=== PATIENT | male | born 1945 | race Caucasian/White ===

== ENCOUNTER 2020-05-19 12:30 | Outpatient (CLI) | payer MEDICARE, SELFPAY ==
--- NOTE | 2020-05-19 13:15 | ECHO_ITS ---
Patient Info Name: Mc Steel Age: 74 years : 1945 Gender: Male Ht: 68 in Wt: 295 lbs BSA: 2.60 m2 HR: 63 bpm BP: 164 / 93 mmHg Technical Quality: Poor Exam Date: 05/19/2020 1:31 PM Exam Location: [facility] Patient Status: Outpatient Admit Date: 05/19/2020 Staff Ordering Physician: Paulino Montano DO Mobile Service Rv Technician: Cara Berman RDCS Attending Provider: Paulino Montano DO Referring Physician: Dusty HERNANDEZ; Exam Type: CA echo dop color flow w con Study Info Indications - BLAKE Complete two-dimensional, color flow and Doppler transthoracic echocardiogram is performed with contrast to opacify the left ventricle and to improve the deliniation of the left ventricle endocardial borders. Contrast/Agitated Saline Contrast/Ag. Saline: Definity Amount: 2.00 ml Administered By: Concepcion Lu RN New IV Access: Right Site Condition: IV removed Reason for Poor Study: patient body habitus Summary 1. Left ventricular chamber dimension is normal. 2. Definity contrast administered improved wall motion interpretation. 3. Left ventricular systolic function is normal, estimated at 60-65%. 4. The left ventricular diastolic function is grade I diastolic dysfunction. 5. E/e' 12 is mildly elevated. 6. No pulmonary hypertension, estimated pulmonary arterial systolic pressure is 21 mmHg. Left Ventricle E/e' 12 is mildly elevated. Definity contrast administered improved wall motion interpretation. Left ventricular chamber dimension is normal. Left ventricular systolic function is normal, estimated at 60-65%. The left ventricular diastolic function is grade I diastolic dysfunction. Right Ventricle Right ventricular chamber dimension is normal. Right ventricular systolic function is normal. Left Atria Left atrial chamber dimension is normal. Right Atria Right atrial chamber dimension is normal. Aortic Valve The aortic valve is not well visualized. Cannot determine number of aortic valve leaflets. There is no aortic valve stenosis. There is no aortic valve regurgitation. Pulmonic Valve There is no pulmonic regurgitation. Mitral Valve There is no mitral valve stenosis. There is no mitral valve regurgitation. Tricuspid Valve There is no tricuspid valve regurgitation. No pulmonary hypertension, estimated pulmonary arterial systolic pressure is 21 mmHg. Pericardium/Pleural There is no pericardial effusion. Inferior Vena Cava Normal inferior vena cava with >50% collapse upon inspiration consistent with normal right atrial pressure, 5 mmHg. Aorta The aortic root size at the sinus of Valsalva is not well visualized. Left Ventricular Outflow Tract Name Value Normal LVOT 2D LVOT Diameter 2.08 cm LVOT Doppler LVOT Peak Gradient 4 mmHg LVOT Mean Gradient 2 mmHg LVOT VTI 19.71 cm LVOT VTI/AV VTI Ratio 0.82 LVOT Stroke Volume 66.85 ml LVOT CO 12.77 l/
== END 2020-05-19 12:31 | disposition home or self-care (01) ==
PROVIDERS: PCP Family Medicine; Visit Provider Internal Medicine Cardiovascular Disease
DX: R06.00 Dyspnea, unspecified (principal); I51.89 Other ill-defined heart diseases
CPT/HCPCS: C8929

== ENCOUNTER 2020-06-22 11:40 | Emergency (ER) | payer MEDICARE, SELFPAY ==
--- NOTE | ~2020-06-22 | XR_ITS ---
EXAMINATION: XR chest 2V EXAM DATE: 06/22/2020 13:15 INDICATION: weakness, h/o lung mets. TECHNIQUE: Frontal and lateral projections of the chest obtained and reviewed. Comparison is made to prior examination from 07/14/15. FINDINGS: Right-sided CT portacatheter. Tip projects over cavoatrial junction. The lungs are clear. There are no pleural effusions. Cardiac silhouette is prominent but magnified on this AP technique. There is no pneumothorax suspected. The bones and soft tissues are unremarkable. IMPRESSION: No acute cardiopulmonary findings. Reviewed, dictated and finalized at location A.
[2020-06-22 11:44] VITALS: BP 162/72; PULSE 59; RESP 18; TEMP 36.4; O2SAT 99
--- NOTE | 2020-06-22 11:56 | ECG_ITS ---
Measurements Intervals [place] Rate: 56 P: [place]: 0 QRS: 69 QRSD: 85 T: 41 QT: 428 QTc: 415 Interpretive Statements SINUS BRADYCARDIA WITH FIRST DEGREE AV BLOCK LOW QRS VOLTAGE IN PRECORDIAL LEADS BORDERLINE R WAVE PROGRESSION, ANTERIOR LEADS BASELINE WANDER- I, II, AVR, AVL, AVF, V3-V6 ABNORMAL ECG Electronically Signed On 06-22-2020 12:11:10 CDT by Paulino Montano D.O.
[2020-06-22 12:25] VITALS: BP 160/71; PULSE 72; RESP 99; O2SAT 18
[2020-06-22 12:26] VITALS: PULSE 67
[2020-06-22 13:06] LABS: Basophils Percent Auto 0.5 % (0.2-1.2); Eosinophils Percent Auto 0.7 % (0-4.4); Hematocrit 46.5 % (42.0-52.0); Hemoglobin 15.3 g/dL (14.0-18.0); Immature Granulocyte Absolute 0.02 K/mm3 (0.00-0.031); Immature Granulocyte Percent A 0.3 % (0-0.5); Immature Platelet Fraction Pct 5.9 % (0.9-11.2); Lymphocytes Absolute Auto 1.61 K/mm3 (0.9-3.2); Lymphocytes Percent Auto 26.8 % (18.3-44.2); Mean Corpuscular HGB Conc 32.9 g/dl (32-36); Mean Corpuscular Hemoglobin 30.5 pg (26-34); Mean Corpuscular Volume 92.8 fl (80-100); Mean Platelet Volume 10.8 fl (7.4-10.4); Monocytes Absolute Auto 0.5 K/mm3 (0.1-0.6); Monocytes Percent Auto 8.8 % (2.6-8.5); Neutrophils Absolute Auto 3.8 K/mm3 (1.3-6.7); Neutrophils Percent Auto 62.9 % (45.5-73.1); Platelet Count Result 129 k/mm3 (150-375); Red Blood Count 5.01 M/mm3 (4.6-6.20); Red Cell Distribution Width 14.6 % (11.5-14.5)
[2020-06-22 13:09] LABS: Add Urine Microscopic? YES; Appearance Urine Cloudy (Clear); Bacteria Urine Trace /hpf; Bilirubin Urine Negative (Negative); Blood Urine Negative (Negative); Color Urine Yellow (Yellow); Glucose Urine UA Negative (Negative); Ketones Urine Negative (Negative); Leukocyte Esterase Ur Negative LEU/UL (Negative); Mucus Urine Rare /lpf; Nitrate Urine Negative (Negative); Protein Urine 3+ mg/dL (Negative); RBC Urine 0-2 /hpf (0-2); Specific Grav Ur 1.018 (1.001-1.035); Squamous Epithelial Cell Urine Many /hpf (Few); Urobilinogen Urine Negative mg/dL (<2.0)
[2020-06-22 13:26] LABS: Alanine Aminotransferase 21 U/L (4-50); Albumin Level 3.7 g/dL (3.5-5.1); Alkaline Phosphatase 68 U/L (38-126); Anion Gap 5 mmol/L (8-16); Aspartate Amino Transferase 24 U/L (17-59); Bilirubin,Total 1.3 mg/dL (0.2-1.3); Blood Urea Nitrogen 16 mg/dL (9-20); Calcium 8.8 mg/dL (8.4-10.2); Carbon Dioxide 29 mmol/L (22-30); Chloride 105 mmol/L (98-107); Estimated CRCL calculation 47 ml/min; Estimated Glomerular Filt Rate 42; Glucose 136 mg/dL (75-110); Potassium 3.7 mmol/L (3.4-5.0); Sodium 139 mmol/L (137-145)
--- NOTE | 2020-06-22 13:39 | ED.WEAKNESS ---
HPI - Weakness General Chief complaint: Weakness Stated complaint: Trouble standing and walking Time Seen by Provider: 06/22/20 12:26 Source: patient Limitations: no limitations History of Present Illness HPI Narrative: 74-year-old male History of diabetes, hypertension He is being treated excitement for renal cell cancer with [place] and as far as he knows is responding to treatment Presents today for evaluation of somewhat vague general weakness and feeling like his legs will not hold him up over the last few days He does not have any focal neurologic symptoms and does not have near syncope or vertigo or dizziness Similarly denies a cough shortness of breath chest pain He had diarrhea couple days ago MD Complaint: generalized weakness and difficulty walking Related Data Home Medications Medication Instructions Recorded Confirmed axitinib 5 mg tablet 3 mg PO BID 03/16/20 04/19/20 levothyroxine 88 mcg capsule 88 mcg PO DAILY 03/16/20 04/19/20 alprazolam 0.25 mg disintegrating 0.25 mg PO DAILY 04/19/20 04/19/20 tablet amlodipine 5 mg tablet 5 mg PO DAILY 04/19/20 04/19/20 atorvastatin 40 mg tablet 40 mg PO DAILY 04/19/20 04/19/20 carvedilol 12.5 mg tablet 12.5 mg PO Q12H 04/19/20 04/19/20 diazepam 5 mg tablet 5 mg PO DAILY PRN tablet 04/19/20 04/19/20 fluticasone furoate 100 1 inh INHALATION DAILY 04/19/20 04/19/20 mcg-vilanterol 25 mcg/dose inhalation powder furosemide 40 mg tablet 40 mg PO QAM 04/19/20 04/19/20 hydrocodone 5 mg-acetaminophen 325 1 tablet PO Q8H PRN 04/19/20 04/19/20 mg tablet insulin glargine U-300 conc 300 30 unit SUBCUT DAILY 04/19/20 04/19/20 unit/mL (3 mL) subcutaneous pen insulin lispro protamine-lispro 1 sliding scale dose SUBCUT 04/19/20 04/19/20 100 unit/mL (50-50) subcutaneous USEASDIRECTD susp liraglutide 0.6 mg/0.1 mL (18 mg/3 0.6 mg SUBCUT DAILY 04/19/20 04/19/20 mL) subcutaneous pen injector prochlorperazine maleate 10 mg 10 mg PO Q8H PRN 04/19/20 04/19/20 tablet levothyroxine 06/22/20 Allergies Allergy/AdvReac Type Severity Reaction Status Date / Time Penicillins Allergy Intermediate Rash Verified 06/22/20 12:35 Review of Systems Review of Systems: All systems reviewed & are unremarkable except as noted in HPI and below Constitutional: Constitutional: Reports no additional constitutional complaints, Denies chills, Reports fatigue, Denies fever(s), Denies headache(s) and Reports weakness Eyes: Eyes: Reports no additional eye complaints and Denies change in vision ENT: Denies headache(s) and Denies sore throat Cardiovascular: Cardiovascular: Denies chest pain and Denies dyspnea Respiratory: Respiratory: Denies cough and Denies dyspnea Gastrointestinal: Gastrointestinal: Denies abdominal pain, Reports diarrhea, Reports nausea and Denies vomiting Genitourinary: Genitourinary: Denies dysuria and Denies urinary frequency Musculoskeletal: Musculoskeletal: Denies deformity, Denies arthralgias, Denies joint swelling and Denies numbness Integumentary/Breasts: Skin/Breast: Denies rash and Denies wounds Neurologic: Denies headache(s), Denies focal weakness, Denies numbness and Reports weakness Psychiatric: Psychiatric: Reports no additional psychiatric complaints Endocrine: Endocrine: Reports no additional endocrine complaints Hematologic/Lymphatic: Hematologic/Lymphatic: Reports no additional hematologic/lymphatic complaints Allergic/Immunologic: Allergic/Immunologic: Reports no additional allergic/immunologic complaints [facility] Past Medical History Medical History (Updated 06/22/20 @ 15:32 by Meir Walls MD) Asthma Chronic kidney disease Diabetes 1.5, managed as type 2 Generalized anxiety disorder HTN (hypertension) Hyperlipidemia Hypothyroidism Impacted cerumen Pain in right toe(s) Primary insomnia Renal carcinoma Tinea unguium Surgical History Surgical History (Updated 03/16/20 @ 11:17 by Odessa Pacheco 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
[2020-06-22 15:33] LABS: Magnesium 1.9 mg/dL (1.6-2.3)
[2020-06-22 15:51] VITALS: BP 161/73; PULSE 60; RESP 18; O2SAT 98
== END 2020-06-22 15:52 | disposition home or self-care (01) ==
PROVIDERS: General Practice; Emergency Provider Emergency Medicine; PCP Family Medicine
DX: R53.1 Weakness (principal); R26.2 Difficulty in walking, not elsewhere classified; C64.9 Malignant neoplasm of unspecified kidney, except renal pelvis; E11.22 Type 2 diabetes mellitus with diabetic chronic kidney disease; I12.9 Hypertensive chronic kidney disease with stage 1 through stage 4 chronic kidney disease, or unspecified chronic kidney disease; N18.9 Chronic kidney disease, unspecified; J45.909 Unspecified asthma, uncomplicated; E78.5 Hyperlipidemia, unspecified; E03.9 Hypothyroidism, unspecified; Z79.4 Long term (current) use of insulin; R00.1 Bradycardia, unspecified; I44.0 Atrioventricular block, first degree; R94.31 Abnormal electrocardiogram [ECG] [EKG]
CPT/HCPCS: 36415; 71046; 80053; 81001; 83735; 84443; 85025; 85055; 87086; 93005; 97161; 99283

== ENCOUNTER 2021-02-12 16:27 | Outpatient (CLI) | payer MEDICARE, SELFPAY ==
[2021-02-12 18:00] LABS: SARS-CoV-2 RNA PCR Negative (Negative)
== END 2021-02-12 16:28 | disposition home or self-care (01) ==
LOC: CHSLAB 16:29
PROVIDERS: PCP Family Medicine; Visit Provider Nurse Practitioner Family
DX: Z20.822 Contact with and (suspected) exposure to COVID-19 (principal)
CPT/HCPCS: C9803; U0003; U0005

== ENCOUNTER 2021-03-30 11:18 | Outpatient (CLI) | payer MEDICARE, SELFPAY ==
--- NOTE | ~2021-03-30 | XR_ITS ---
EXAMINATION: XR ankle LT min 3V DATE: 03/30/2021 11:50 INDICATION: Lateral left ankle pain TECHNIQUE: Anteroposterior, oblique, mortise, and lateral views of the left ankle were obtained. COMPARISON: None. FINDINGS: Alignment is normal. No fracture. Joint spaces are well maintained. No erosions. Small plantar calca deb spur and small amount of enthesopathic ossification at the distal Achilles tendon. Vascular calc ifications along the posterior tibial artery and along the arteries at the plantar aspect of the foot . No ankle joint effusion. Diffuse soft tissue tissue swelling about the ankle and visualized distal calf and proximal foot. IMPRESSION: 1. No acute osseous abnormality. Reviewed, dictated and finalized at location A. COUNCIL MEMBER
--- NOTE | ~2021-03-30 | US_ITS ---
EXAMINATION: US venous doppler [facility] DATE: 03/30/2021 14:22 INDICATION: Lower limb swelling. TECHNIQUE: Grayscale ultrasound images without and with compression and Doppler ultrasound images of the bilateral lower extremity veins were obtained. COMPARISON: None. FINDINGS: The visualized portions of right common femoral vein, profunda (deep) femoral vein, femoral vein, pop liteal vein, peroneal veins, posterior tibial veins, and greater saphenous vein outflow are patent. The visualized portions of left common femoral vein, profunda femoral vein, femoral vein, popliteal v ein, peroneal veins, posterior tibial veins, and greater saphenous vein outflow are patent. IMPRESSION: 1. No deep venous thrombosis. Reviewed, dictated and finalized at location E. ICAL EXERCISE SPECIALIST
[2021-03-30 11:40] LABS: Basophils Absolute Auto 0.02 K/mm3 (0.00-0.10); Basophils Percent Auto 0.2 % (0.0-1.0); Eosinophils Absolute Auto 0.09 K/mm3 (0.02-0.50); Hematocrit 32.6 % (37.0-46.0); Hemoglobin 10.5 g/dL (12.4-15.3); Immature Granulocyte Absolute 0.02 K/mm3 (0.00-0.00); Immature Granulocyte Percent A 0.2 % (0.0-0.0); Lymphocytes Absolute Auto 2.25 K/mm3 (1.10-4.50); Lymphocytes Percent Auto 25.5 % (18.0-42.0); Mean Corpuscular HGB Conc 32.2 g/dL (32.0-36.0); Mean Corpuscular Hemoglobin 30.7 pg (27.0-31.0); Mean Corpuscular Volume 95.3 fL (78.0-102.0); Mean Platelet Volume 10.5 fl (8.7-11.0); Monocytes Absolute Auto 0.72 K/mm3 (0.10-0.90); Monocytes Percent Auto 8.2 % (2.0-11.0); Neutrophils Absolute Auto 5.7 K/mm3 (1.7-7.2); Neutrophils Percent Auto 64.9 % (50.0-70.0); Platelet Count Result 114 K/mm3 (150-420); Red Blood Count 3.42 M/mm3 (4.70-6.10); Red Cell Distribution Width 13.6 % (11.6-14.4); White Blood Count 8.8 K/mm3 (4.8-10.8)
[2021-03-30 12:05] LABS: Alanine Aminotransferase 23 U/L (16-63); Albumin Level 3.1 g/dL (3.4-5.0); Alkaline Phosphatase 82 U/L (46-116); Anion Gap 8 mmol/L (8-16); Aspartate Amino Transferase 14 U/L (15-37); Bilirubin,Total 0.8 mg/dL (0.00-1.00); Blood Urea Nitrogen 23 mg/dL (7-18); Calcium 9.3 mg/dL (8.5-10.1); Carbon Dioxide 28 mmol/L (21-32); Chloride 105 mmol/L (98-108); Estimated Glomerular Filt Rate 27; Glucose 52 mg/dL (70-99); Osmolality Calculated 292 mOsm/kg (285-295); Potassium 4.4 mmol/L (3.5-5.1); Sodium 141 mmol/L (136-145); Total Protein 6.5 g/dL (6.4-8.2)
[2021-03-30 12:42] LABS: D Dimer 1.04 mg/L (0.19-0.50)
== END 2021-03-30 11:19 | disposition home or self-care (01) ==
PROVIDERS: PCP Family Medicine; Visit Provider Family Medicine
DX: R79.1 Abnormal coagulation profile (principal); R60.0 Localized edema; M25.572 Pain in left ankle and joints of left foot
CPT/HCPCS: 36415; 73610; 80053; 85025; 85380; 93970

== ENCOUNTER 2021-07-22 21:55 | Emergency (ER) | payer MEDICARE, SELFPAY ==
--- NOTE | ~2021-07-22 | CT_ITS ---
EXAMINATION: CT abdomen pelvis wo con DATE: 07/22/2021 22:59 INDICATION: Bilateral flank pain. History of metastatic disease. TECHNIQUE: Computed tomography (CT) of the abdomen and pelvis was performed without intravenous contr ast. Automated exposure control and iterative reconstruction technique were employed. Exam dose: 148 1.94 mGy-cm total exam DLP. COMPARISON: 05/20/2009 CT abdomen pelvis. FINDINGS: Heart size is within normal range. Small right pleural effusion. No pericardial effusion. Small sliding hiatal hernia. Irregular up to 3 cm pancreatic tail mass suspicious for pancreatic carcinoma. Probable splenule. The liver is unremarkable. Status post cholecystectomy. No bile duct or pancreatic duct dilatation. S pleen measures 11 cm vertical dimension, within normal range. No splenic mass lesion is evident. Prob able splenule. Approximately 1.2 cm left adrenal mass, possibly a metastasis versus adenoma. Normal right adrenal gl and. Status post right nephrectomy. No left renal mass lesion is evident on this limited noncontrast examination. No urinary tract calcul us or hydroureteronephrosis. The urinary bladder and prostate gland are unremarkable. Small bilateral fat-containing inguinal hernias. No bowel obstruction or intraperitoneal free air. There is atherosclerotic calcification of the abdominal aorta, origins of the renal arteries and gabby c and femoral arteries. No abdominal aortic aneurysm. Nonspecific soft tissue nodule in the right retroperitoneum measuring 1.2 cm (series 3 image 70). Add itional small intraperitoneal nodular densities are noted including one in the left parasagittal lowe r abdomen measuring approximately 8 mm (series 3 image 132, several in the left external iliac region , measuring up to 11 mm. 1.5 cm soft tissue mass in the subcutaneous adipose tissue in the posterolateral left abdominal wall/ flank. 1.5 cm mass at the midline rectus sheath at the umbilical level. 1 cm soft tissue subcutaneous lesion in the right anterior inguinal area. Bilateral inguinal soft tissue densities, measuring up to 1.3 cm on the right, 2 cm on the left, like ly indeterminate inguinal lymph nodes. Extensive pulmonary metastatic deposits of variable size are noted bilaterally, measuring up to 1.5 c m approximate maximal dimension. Expansile lytic lesion at T9 with apparent vertebroplasty. Diffuse idiopathic skeletal hyperostosis of the thoracic spine. IMPRESSION: Approximately 3 cm pancreatic tail mass, suspicious for pancreatic carcinoma Extensive pulmonary metastatic disease Lytic probable metastasis at T9; status post vertebroplasty at T9 Subcutaneous and intraperitoneal and retroperitoneal soft tissue masses and left and right inguinal a denopathy suspicious for metastatic disease Status post right nephrectomy Status post cholecystectomy Indeterminate 1.2 cm left adrenal mass Reviewed, dictated and finalized at Location A. Reviewed, dictated and finalized at location A. IMPRESSION: Approximately 3 cm pancreatic tail mass, suspicious for pancreatic carcinoma Extensive pulmonary metastatic disease Lytic probable metastasis at T9; status post vertebroplasty at T9 Subcutaneous and intraperitoneal and retroperitoneal soft tissue masses and lef t and right inguinal adenopathy suspicious for metastatic disease Status post right nephrectomy Status post cholecystectomy Indeterminate 1.2 cm left adrenal mass
[2021-07-22 21:58] VITALS: BP 157/64; PULSE 81; RESP 16; TEMP 36.3; O2SAT 95
[2021-07-22 22:21] LABS: Basophils Percent Auto 0.3 % (0.2-1.2); Eosinophils Absolute Auto 0.1 K/mm3 (0-0.3); Eosinophils Percent Auto 1.1 % (0-4.4); Immature Granulocyte Absolute 0.03 K/mm3 (0.00-0.031); Immature Granulocyte Percent A 0.5 % (0-0.5); Lymphocytes Absolute Auto 0.92 K/mm3 (0.9-3.2); Lymphocytes Percent Auto 14.8 % (18.3-44.2); Mean Corpuscular HGB Conc 31.6 g/dl (32-36); Mean Corpuscular Hemoglobin 31.5 pg (26-34); Mean Corpuscular Volume 99.7 fl (80-100); Mean Platelet Volume 9.6 fl (7.4-10.4); Monocytes Absolute Auto 0.6 K/mm3 (0.1-0.6); Monocytes Percent Auto 10.3 % (2.6-8.5); Neutrophils Absolute Auto 4.5 K/mm3 (1.3-6.7); Platelet Count Result 187 k/mm3 (150-375); Red Blood Count 3.81 M/mm3 (4.6-6.20); Red Cell Distribution Width 13.8 % (11.5-14.5); White Blood Count 6.2 K/mm3 (4.5-10.0)
--- NOTE | 2021-07-22 22:33 | ECG_ITS ---
Measurements Intervals [place] Rate: 84 P: 83 OR: 287 QRS: 58 QRSD: 118 T: -14 QT: 364 QTc: 432 Interpretive Statements SINUS RHYTHM WITH FIRST DEGREE AV BLOCK LOW QRS VOLTAGE IN PRECORDIAL LEADS BORDERLINE ST-T WAVE ABNORMALITY- ANTEROLAT/INF LEADS BASELINE ARTIFACT- I, III, AVL, AVF ABNORMAL ECG Electronically Signed On 07-23-2021 7:12:10 CDT by Paulino Montano D.O.
[2021-07-22 22:35] LABS: Alanine Aminotransferase 15 U/L (6-50); Albumin Level 3.9 g/dL (3.5-5.1); Alkaline Phosphatase 88 U/L (38-126); Anion Gap 5 mmol/L (8-16); Aspartate Amino Transferase 25 U/L (17-59); Bilirubin,Total 1.1 mg/dL (0.2-1.3); Blood Urea Nitrogen 27 mg/dL (9-20); Calcium 12.4 mg/dL (8.4-10.2); Carbon Dioxide 30 mmol/L (22-30); Chloride 101 mmol/L (98-107); Estimated CRCL calculation 31 ml/min; Estimated Glomerular Filt Rate 28; Glucose 110 mg/dL (65-110); Sodium 136 mmol/L (137-145)
[2021-07-22] MEDS: MORPHINE SULFATE (*CRX) 4 MG/ML INJ IV PUSH (23:06)
[2021-07-22] MEDS: SODIUM CHLORIDE 0.9% IV 1,000 ML 999 ML IV CONT (23:06)
[2021-07-22 23:11] LABS: Lipase 61 U/L (23-300)
--- NOTE | 2021-07-22 23:19 | ED.BACK ---
HPI - Back Pain/Injury General Chief Complaint: Back Pain/Injury Stated Complaint: bilateral flank pain cancer Time Seen by Provider: 07/22/21 22:17 Source: patient and family History of Present Illness HPI Narrative: Patient presents with bilateral flank pain. Patient has known metastatic disease primary of renal cell carcinoma has had a radical nephrectomy. He has had bilateral flank pain for approximately 5 weeks has been seen by his oncologist without a clear diagnosis. Approximately 5 weeks ago he did have a procedure on one of his vertebrae to cut out a malignancy and was refilled with concrete . Family is unsure as to which vertebrae was involved. Over the course of 5 weeks they have obtained Percocet and Vicodin and trying to balance the dizziness and altered mental status his narcotics cause him versus pain control. He came in today because of feel like the pain is not improving. The reports the patient that he had some mild chest pain this morning patient denies any chest pain or shortness of breath to me that has not been any recent fevers, cough, congestion. There has not been any nausea vomiting diarrhea or urinary. Related Data Home Medications Medication Instructions Recorded Confirmed levothyroxine 88 mcg capsule 88 mcg PO DAILY 03/16/20 05/21/21 alprazolam 0.25 mg disintegrating 0.25 mg PO DAILY 04/19/20 05/21/21 tablet amlodipine 5 mg tablet (Norvasc) 5 mg PO DAILY 04/19/20 05/21/21 diazepam 5 mg tablet 5 mg PO DAILY PRN Anxiety 04/19/20 05/21/21 fluticasone furoate 100 1 inh inhalation DAILY 04/19/20 05/21/21 mcg-vilanterol 25 mcg/dose inhalation powder (Breo Ellipta) hydrocodone 5 mg-acetaminophen 325 1 tablet PO Q8H PRN Anxiety 04/19/20 05/21/21 mg tablet insulin glargine U-300 conc 300 30 unit subcut DAILY 04/19/20 05/21/21 unit/mL (3 mL) subcutaneous pen (Toujeo Max U-300 SoloStar) insulin lispro protamine-lispro 1 sliding scale dose subcut 04/19/20 05/21/21 100 unit/mL (50-50) subcutaneous USEASDIRECTD susp (Humalog Mix 50-50 Insuln U-100) liraglutide 0.6 mg/0.1 mL (18 mg/3 0.6 mg subcut DAILY 04/19/20 05/21/21 mL) subcutaneous pen injector (AAVLifetoza 3-Tevin) prochlorperazine maleate 10 mg 10 mg PO Q8H PRN Nausea 04/19/20 05/21/21 tablet levothyroxine 75 mcg tablet 06/22/20 05/21/21 atorvastatin 10 mg tablet 10 mg PO DAILY 05/21/21 05/21/21 Allergies Allergy/AdvReac Type Severity Reaction Status Date / Time Penicillins Allergy Intermediate Rash Verified 05/21/21 13:25 Review of Systems Review of Systems: CONSTITUTIONAL: Denies fever, chills, or sweats. EYES: Denies visual changes, redness, or discharge. ENT: Denies rhinorrhea, congestion, sore throat, or otalgia. CARDIOVASCULAR: Denies chest pain, palpitations, or edema. RESPIRATORY: Denies cough or dyspnea. GASTROINTESTINAL: Denies nausea, vomiting, or diarrhea. GENITOURINARY: Denies dysuria or hematuria. SKIN: Denies rash or itching. MUSCULOSKELETAL: Denies joint pain, or myalgia. NEUROLOGIC: Denies headache, numbness, dizziness, or weakness. PSYCHIATRIC: Denies anxiety or depression. All systems reviewed & are unremarkable except as noted in HPI and below PMFSH Past Medical History Medical History Asthma Chronic kidney disease Diabetes 1.5, managed as type 2 Generalized anxiety disorder HTN (hypertension) Hyperlipidemia Hypothyroidism Impacted cerumen Pain in right toe(s) Primary insomnia Renal carcinoma Tinea unguium Surgical History Surgical History History of cholecystectomy History of colonoscopy History of hernia repair History of nephrectomy Family History Family History Other Family history of Alzheimer's disease Social History Social History Smoking status: Never sm
[2021-07-22 23:22] LABS: Lactic Acid Reflex 1.8 mmol/L (0.7-2.0)
[2021-07-22 23:25] VITALS: BP 152/58; PULSE 77; RESP 16; O2SAT 95
--- NOTE | 2021-07-22 23:55 | PC.NURSE ---
Pt arrived with EMS from home. EMS reports pt c/o lower back pain, which thinks may be UTI. Pt's reports pt currently being treated for cancer at [facility]. Urine specimen obtained via straight cath and sent to lab as ordered.
[2021-07-23 00:02] LABS: Appearance Urine Clear (Clear); Bilirubin Urine Negative (Negative); Blood Urine Trace-lysed (Negative); Color Urine Yellow (Yellow); Glucose Urine UA Negative (Negative); Ketones Urine Negative (Negative); Leukocyte Esterase Ur Negative LEU/UL (Negative); Nitrate Urine Negative (Negative); Protein Urine 1+ mg/dL (Negative); Urobilinogen Urine 0.2 mg/dL (<2.0); pH Urine 6.5 (5.0-9.0)
[2021-07-23 00:04] LABS: Mucus Urine Rare /lpf; Squamous Epithelial Cell Urine Few /hpf (Few); WBC Urine 0-3 /hpf
[2021-07-23 00:07] LABS: Add Urine Microscopic? YES
[2021-07-23 00:53] VITALS: BP 155/58; PULSE 75; RESP 16; TEMP 36.7; O2SAT 98
== END 2021-07-23 00:55 | disposition home or self-care (01) ==
PROVIDERS: Emergency Provider Emergency Medicine; PCP Family Medicine
DX: M54.50 Low back pain, unspecified (principal); C64.9 Malignant neoplasm of unspecified kidney, except renal pelvis; C79.9 Secondary malignant neoplasm of unspecified site; I12.9 Hypertensive chronic kidney disease with stage 1 through stage 4 chronic kidney disease, or unspecified chronic kidney disease; E13.22 Other specified diabetes mellitus with diabetic chronic kidney disease; N18.9 Chronic kidney disease, unspecified; E78.5 Hyperlipidemia, unspecified; E03.9 Hypothyroidism, unspecified; Z79.4 Long term (current) use of insulin; Z90.5 Acquired absence of kidney
CPT/HCPCS: 36415; 74176; 80053; 81001; 83605; 83690; 85025; 93005; 96361; 96374; 99284; J2270; J7030

== ENCOUNTER 2021-07-27 09:02 | Inpatient (IN) | payer MEDICARE, SELFPAY ==
[2021-07-27] VITALS (8 sets, daily range): BP systolic 167–188; BP diastolic 64–73; PULSE 82–105; RESP 14–24; TEMP 36.4–38.1; O2SAT 93–97; BMI 39.2
--- NOTE | ~2021-07-27 | CT_ITS ---
EXAMINATION: CT chest abdomen pelvis wo con DATE: 07/27/2021 09:53 INDICATION: Abdominal pain. TECHNIQUE: Computed tomography (CT) of the chest, abdomen, and pelvis was performed without intraveno us contrast. Automated exposure control and iterative reconstruction technique were employed. The dos e-length product was 1954.35 mGy-cm. COMPARISON: CT abdomen and pelvis 07/22/2021, chest CT 09/02/2014 FINDINGS: CHEST CT: There are greater than 40 scattered nodules in the lungs in a random distribution measuring up to 2.9 cm. There is a right internal jugular port with tip in superior vena cava. There are small pleural e ffusions, right worse than left. The heart size is normal. There are coronary artery calcifications. No pericardial effusion. There is mediastinal and bilateral hilar lymphadenopathy. There is a small s liding hiatal hernia. There are subcutaneous body wall masses posterior to the right shoulder. There are old healed fractures of right fifth and sixth ribs. There is a lytic lesion of T9 with changes of vertebroplasty. ABDOMEN/PELVIS CT: The liver and spleen are normal. There are changes of cholecystectomy. There is a 2.9 cm mass in the tail of the pancreas. Right adrenal gland is normal. There is a 1.4 cm mass in left adrenal gland. Th ere are changes of right nephrectomy. Left kidney is normal. The prostate is mildly enlarged. There a re bilateral inguinal hernias containing fat. There are no dilated loops of bowel. The appendix is no rmal. There are multiple masses in the peritoneum with the largest measuring 19 x 18 mm at the umbili cus. There are multiple body wall masses with a textiles sales representative mass measuring 2.0 x 1.7 cm in the sub cutaneous left flank. There is moderate lumbar spondylosis. IMPRESSION: 1. Lung nodules, mediastinal and bilateral hilar lymphadenopathy, T9 lytic lesion, body wall masses, and peritoneal masses, consistent with metastatic renal cell carcinoma. 2. Pancreatic mass, which may be metastatic renal cell carcinoma or less likely a primary pancreatic neoplasm. 3. 1.4 cm left adrenal mass, which may be an adenoma or metastatic disease. 4. Small pleural effusions, right worse than left. Reviewed, dictated and finalized at location A. IMPRESSION: 1. Lung nodules, mediastinal and bilateral hilar lymphadenopathy, T9 lytic lesi on, body wall masses, and peritoneal masses, consistent with metastatic renal c ell carcinoma. 2. Pancreatic mass, which may be metastatic renal cell carcinoma or less likely a primary pancreatic neoplasm. 3. 1.4 cm left adrenal mass, which may be an adenoma or metastatic disease. 4. Small pleural effusions, right worse than left.
--- NOTE | ~2021-07-27 | CT_ITS ---
EXAMINATION: CT brain wo con DATE: 07/27/2021 09:53 INDICATION: Increased weakness. Incontinence. TECHNIQUE: Computed tomography (CT) of the head was performed without intravenous contrast. The dose- length product was 605.33 mGy-cm. Automated exposure control and iterative reconstruction technique w ere employed. COMPARISON: CT dated 03/13/2013 FINDINGS: There is a small chronic right lacunar infarction of the internal capsule. Mild generalized atrophy. No acute intracranial hemorrhage, infarction, mass or mass effect. No ventriculomegaly or m idline shift. There is intracranial atherosclerosis. There is a mucous retention cyst of the right ma xillary sinus. There is mild mucosal thickening of the ethmoid sinuses. Mastoids are pneumatized. The re are scattered mild periventricular and subcortical white matter changes, most likely related to sm all vessel ischemic disease (microangiopathy). IMPRESSION: 1. No acute intracranial abnormality. 2: Chronic focal right lacunar infarction. Reviewed, dictated and finalized at location A.
--- NOTE | 2021-07-27 09:22 | ECG_ITS ---
Measurements Intervals [place] Rate: 103 P: 89 RI: 272 QRS: 78 QRSD: 110 T: -32 QT: 370 QTc: 485 Interpretive Statements SINUS TACHYCARDIA WITH FIRST DEGREE AV BLOCK LOW QRS VOLTAGE IN PRECORDIAL LEADS [QRS DEFLECTION < 1.0 mV IN CHEST LEADS] SEPTAL MYOCARDIAL INFARCTION , PROBABLY OLD [40+ ms Q WAVE IN V1/V2] MODERATE T-WAVE ABNORMALITY, CONSIDER ANTEROLATERAL ISCHEMIA [-0.1+ mV T-WAVE IN V3- V6] MODERATE T-WAVE ABNORMALITY, CONSIDER INFERIOR ISCHEMIA [-0.1+ mV T-WAVE IN II/aVF] COMPARED TO ECG 07/22/2021 22:41:03 ABNORMAL ECG SINUS TACHYCARDIA NOW PRESENT MYOCARDIAL INFARCT FINDING NOW PRESENT Electronically Signed On 07-27-2021 16:58:52 CDT by Julius Loco M.D.
--- NOTE | 2021-07-27 09:22 | ED.WEAKNESS ---
HPI - Weakness General Chief complaint: Weakness Stated complaint: GEN WEAKNESS, LETHARGIC, HOT TO TOUCH Time Seen by Provider: 07/27/21 09:04 History of Present Illness HPI Narrative: 75 y/o male presents to the ER today by EMS from home due to altered mental status and generalized weakness. Mc has renal cell carcinoma with wide spread metastasis. He is currently not receiving chemo. He had mets to the spine and it was stopped prior to having surgery on his vertebrae to remove the malignancy. This surgery was in May. He never got any improvement in the back pain and was seen here on 07/22 for this. He was seen by his oncologist yesterday. He was noted to have very high calcium level. He was given 2 liters of IV fluids and reports that they added a medication to one of the liters to help with the calcium level. They got him home from the appointment yesterday and got him to bed but says he has not been able to get out of bed since then and that he is not really talking much now. She says that his mentation is totally different. He seems confused and not really answering questions. He will give brief 2 word answers or say yes or no. He seems very tired and weak. He is noted to have elevated temp. Pt tells me he stomach hurts but cannot provide much more information. says he is not really using his legs. She says that the oncologist eluded that there may not be anything that can be done for his cancer. She and her daughter have talked about hospice. is tearful and says she isn't sure and says she really doesn't know much about hospice and how it works. She is open to talking with palliative care today. PMH also significant for insulin dependent diabetes, hyperlipidemia, and hypertension. He has had a radical nephrectomy due to the cancer. Related Data Home Medications Medication Instructions Recorded Confirmed levothyroxine 88 mcg capsule 88 mcg PO DAILY 03/16/20 05/21/21 alprazolam 0.25 mg disintegrating 0.25 mg PO DAILY 04/19/20 05/21/21 tablet amlodipine 5 mg tablet (Norvasc) 5 mg PO DAILY 04/19/20 05/21/21 diazepam 5 mg tablet 5 mg PO DAILY PRN Anxiety 04/19/20 05/21/21 fluticasone furoate 100 1 inh inhalation DAILY 04/19/20 05/21/21 mcg-vilanterol 25 mcg/dose inhalation powder (Breo Ellipta) hydrocodone 5 mg-acetaminophen 325 1 tablet PO Q8H PRN Anxiety 04/19/20 05/21/21 mg tablet insulin glargine U-300 conc 300 30 unit subcut DAILY 04/19/20 05/21/21 unit/mL (3 mL) subcutaneous pen (Toujeo Max U-300 SoloStar) insulin lispro protamine-lispro 1 sliding scale dose subcut 04/19/20 05/21/21 100 unit/mL (50-50) subcutaneous USEASDIRECTD susp (Humalog Mix 50-50 Insuln U-100) liraglutide 0.6 mg/0.1 mL (18 mg/3 0.6 mg subcut DAILY 04/19/20 05/21/21 mL) subcutaneous pen injector (MakerCraftza 3-Tevin) prochlorperazine maleate 10 mg 10 mg PO Q8H PRN Nausea 04/19/20 05/21/21 tablet levothyroxine 75 mcg tablet 06/22/20 05/21/21 atorvastatin 10 mg tablet 10 mg PO DAILY 05/21/21 05/21/21 amlodipine 5 mg tablet mg 07/27/21 carvedilol 12.5 mg tablet mg 07/27/21 furosemide 20 mg tablet mg 07/27/21 levothyroxine 88 mcg tablet tablet 07/27/21 ondansetron 4 mg disintegrating mg 07/27/21 tablet oxycodone 5 mg tablet tablet 07/27/21 oxycodone myristate 18 mg capsule ea 07/27/21 sprinkle extended release 12hr(DON'T CRUSH) (Xtampza ER) zoledronic acid 4 mg intravenous mg IV 07/27/21 solution Allergies Allergy/AdvReac Type Severity Reaction Status Date / Time Penicillins Allergy Intermediate Rash Verified 07/27/21 09:18 Review of Systems Review of Systems: CONSTITUTIONAL: fever, generalized weakness EYES: No redness, or discharge. ENT: no congestion or sore throat CARDIOVASCULAR: Denies chest pain, palpitations, or edema. RESPIRATORY: Denies cough or dyspnea. GASTROINTESTINAL: reports generalized abdominal pain and nausea GENITOURINARY: Denies dysuria or hematuria. SKIN: Denies rash
[2021-07-27 09:40] LABS: Basophils Percent Auto 0.1 % (0.2-1.2); Eosinophils Percent Auto 0.3 % (0-4.4); Hematocrit 33.6 % (42.0-52.0); Hemoglobin 10.8 g/dL (14.0-18.0); Immature Granulocyte Absolute 0.03 K/mm3 (0.00-0.031); Immature Granulocyte Percent A 0.4 % (0-0.5); Lymphocytes Absolute Auto 0.34 K/mm3 (0.9-3.2); Lymphocytes Percent Auto 4.6 % (18.3-44.2); Mean Corpuscular HGB Conc 32.1 g/dl (32-36); Mean Corpuscular Volume 99.7 fl (80-100); Mean Platelet Volume 9.9 fl (7.4-10.4); Monocytes Absolute Auto 0.3 K/mm3 (0.1-0.6); Monocytes Percent Auto 3.9 % (2.6-8.5); Neutrophils Absolute Auto 6.7 K/mm3 (1.3-6.7); Neutrophils Percent Auto 90.7 % (45.5-73.1); Platelet Count Result 155 k/mm3 (150-375); Red Blood Count 3.37 M/mm3 (4.6-6.20); Red Cell Distribution Width 13.4 % (11.5-14.5); White Blood Count 7.4 K/mm3 (4.5-10.0)
[2021-07-27 09:50] LABS: Alanine Aminotransferase 14 U/L (6-50); Albumin Level 3.3 g/dL (3.5-5.1); Alkaline Phosphatase 80 U/L (38-126); Anion Gap 5 mmol/L (8-16); Aspartate Amino Transferase 23 U/L (17-59); Bilirubin,Total 1.1 mg/dL (0.2-1.3); Blood Urea Nitrogen 20 mg/dL (9-20); Calcium 11.2 mg/dL (8.4-10.2); Carbon Dioxide 24 mmol/L (22-30); Chloride 106 mmol/L (98-107); Estimated CRCL calculation 41 ml/min; Estimated Glomerular Filt Rate 39; Glucose 206 mg/dL (65-110); Potassium 3.8 mmol/L (3.4-5.0); Sodium 135 mmol/L (137-145)
[2021-07-27 09:51] LABS: INR 1.2; Prothrombin Time 14.4 Seconds (11.1-14.7)
[2021-07-27 09:52] LABS: Partial Thromboplastin Time 39.4 SECONDS (22.3-36.8)
[2021-07-27 09:56] LABS: Glucose Point of Care 190 mg/dl (65-105)
--- NOTE | 2021-07-27 10:05 | PC.NURSE ---
Care Coordination contacted about resources regarding hospice, comfort care, palliative options. Cl will be down shortly.
[2021-07-27 10:11] LABS: Appearance Urine Slightly Cloudy (Clear); Bilirubin Urine Negative (Negative); Blood Urine Trace-lysed (Negative); Color Urine Yellow (Yellow); Glucose Urine UA Negative (Negative); Ketones Urine Negative (Negative); Leukocyte Esterase Ur Trace LEU/UL (Negative); Nitrate Urine Negative (Negative); Protein Urine 2+ mg/dL (Negative); Urobilinogen Urine 0.2 mg/dL (<2.0)
[2021-07-27] MEDS: SODIUM CHLORIDE 0.9% IV 1,000 ML 999 ML IV CONT (10:13)
[2021-07-27 10:16] LABS: Bacteria Urine Trace /hpf; Budding Yeast Urine Present /hpf; Squamous Epithelial Cell Urine Rare /hpf (Few)
[2021-07-27 10:17] LABS: Add Urine Microscopic? YES
[2021-07-27 10:19] LABS: CRP 5.7 mg/dL (<1.0)
--- NOTE | 2021-07-27 10:32 | PCCCNOTE ---
Spoke with and daughter in ED rm 11; pt currently unable to understand and communicate d/t AMS. Information regarding Hospice and Pallative care giving to . Explained general infor regarding both services. Pamphlets given to . They indicated that they will discuss this at home and make a decision later.
[2021-07-27] MEDS: MORPHINE SULFATE (*CRX) 4 MG/ML INJ IV PUSH (11:24)
[2021-07-27] MEDS: CENTRAL LINE FLUSH 10 ML IV PUSH (13:58)
--- NOTE | 2021-07-27 14:12 | ADMGEN ---
This patient, Mc Steel, was admitted to Medical Room 341-01. Patient/family oriented to hospital policies and general routines including ID bracelet, bed and alarms, visiting hours, pain management, procedures, bathroom and other care routines, personal items, smoking policy, room service/diet, and visiting hours. Information on how to activate the Rapid Response Team has been discussed. Patient/Family are encouraged to report perceived risks to care and to ask questions if they do not understand what they are told or what they should do.
[2021-07-27 16:22] LABS: Glucose Point of Care 179 mg/dl (65-105)
--- NOTE | 2021-07-27 16:28 | PM.IMHP ---
H&P: HPI History of Present Illness Date/Time: 07/27/21 16:28 Chief Complaint: Generalized weakness Narrative: 75-year-old male who presents to the ED today weakness and altered mental status. Patient has an underlying history of renal cell carcinoma widespread metastasis. Any chemotherapy. He had metastasis to his spine and was recently removed in May 2021. He has been declining ever since the surgery. Is also been placed on multiple different pain medication his back pain. To his after he recovers from this back surgery. Went to see his oncologist yesterday was noted to have high calcium level. Given 2 L of IV fluid and also a medication to lower his calcium likely Zometa. He got home from 0.9 yesterday and has been feeling extremely weak and not able to ambulate. He is also confused and hence family brought him to the ED for evaluation. With his widespread cancer little been talks about hospice enrollment which is still in process. Family is open to talking with palliative care/hospice. Son is at bedside. is power utility bag assembler. Patient verbalizes and answer some questions. Most of history is taken from the medical records in son was at bedside. PMH also significant for insulin dependent diabetes, hyperlipidemia,? and hypertension. He has had a radical nephrectomy due to the cancer. Review of Systems Review of Systems: - CONSTITUTIONAL: Denies weight loss, fever and chills. Reported to have fever in the ER - HEENT: Denies changes in vision and hearing - RESPIRATORY: Reports SOB and denies cough. - CV: Denies palpitations and CP. - GI: Denies abdominal pain, nausea, vomiting and diarrhea. - : Denies dysuria and urinary frequency. - MSK: Denies myalgia and joint pain. - SKIN: Denies rash and pruritus. - NEUROLOGICAL: Denies headache and syncope. - PSYCHIATRIC: Reports recent changes in mood. All systems reviewed & are unremarkable except as noted in HPI and below Constitutional: Constitutional: Reports fatigue and Reports weakness Neurologic: Reports weakness Endocrine: Endocrine: Reports fatigue PMFSH Past Medical History Medical History (Updated 07/27/21 @ 17:20 by Urban Jefferson MD) Asthma Chronic kidney disease Diabetes 1.5, managed as type 2 Generalized anxiety disorder HTN (hypertension) Hyperlipidemia Hypothyroidism Impacted cerumen Pain in right toe(s) Primary insomnia Renal carcinoma Tinea unguium Surgical History Surgical History History of cholecystectomy History of colonoscopy History of hernia repair History of nephrectomy Family History Family History Other Family history of Alzheimer's disease Social History Social History Smoking status: Never smoker Alcohol intake: former Substance use: never Substance use type: does not use Gender identity (if verbalized by the patient): Male Spiritual care concerns: No Meds Home Medications and Allergies Home Medications Medication Instructions Recorded Confirmed Type levothyroxine 88 mcg capsule 88 mcg PO DAILY 03/16/20 05/21/21 History alprazolam 0.25 mg disintegrating 0.25 mg PO DAILY 04/19/20 05/21/21 History tablet amlodipine 5 mg tablet (Norvasc) 5 mg PO DAILY 04/19/20 05/21/21 History diazepam 5 mg tablet 5 mg PO DAILY PRN Anxiety 04/19/20 05/21/21 History fluticasone furoate 100 1 inh inhalation DAILY 04/19/20 05/21/21 History mcg-vilanterol 25 mcg/dose inhalation powder (Breo Ellipta) hydrocodone 5 mg-acetaminophen 325 1 tablet PO Q8H PRN Anxiety 04/19/20 05/21/21 History mg tablet insulin glargine U-300 conc 300 30 unit subcut DAILY 04/19/20 05/21/21 History unit/mL (3 mL) subcutaneous pen (Toujeo Max U-300 SoloStar) insulin lispro protamine-lispro 1 sliding scale dose subcut 04/19/20
[2021-07-27] MEDS: SODIUM CHLORIDE 0.9% IV 1,000 ML 75 ML IV CONT (17:37)
[2021-07-27 18:55] LABS: Troponin I 0.055 ng/mL (0.000-0.034)
[2021-07-27] MEDS: FLUTICASONE/SALMETEROL 115-21 MCG INHALER 1 PUFF 2 PUFF INHALATION (20:22)
[2021-07-27] MEDS: carvediloL 12.5 MG TABLET PO (20:40)
[2021-07-27] MEDS: ATORVASTATIN 10 MG TABLET PO (20:41)
[2021-07-27] MEDS: DOCUSATE SODIUM 100 MG CAPSULE PO (20:41)
[2021-07-27 23:08] LABS: Glucose Point of Care 172 mg/dl (65-105)
[2021-07-28] VITALS (8 sets, daily range): BP systolic 132–138; BP diastolic 50–61; PULSE 71–86; RESP 16–18; TEMP 36.4–36.6; O2SAT 92–97
[2021-07-28] MEDS: CENTRAL LINE FLUSH 10 ML IV PUSH ×4 (03:58→19:56)
[2021-07-28] MEDS: SODIUM CHLORIDE 0.9% IV 1,000 ML 75 ML IV CONT ×2 (05:40→14:21)
[2021-07-28] MEDS: LEVOTHYROXINE SODIUM 88 MCG TABLET PO (05:50)
[2021-07-28 06:20] LABS: Basophils Percent Auto 0.4 % (0.2-1.2); Eosinophils Percent Auto 0.2 % (0-4.4); Hemoglobin 9.1 g/dL (14.0-18.0); Immature Granulocyte Absolute 0.03 K/mm3 (0.00-0.031); Immature Granulocyte Percent A 0.7 % (0-0.5); Lymphocytes Absolute Auto 0.47 K/mm3 (0.9-3.2); Lymphocytes Percent Auto 10.4 % (18.3-44.2); Mean Corpuscular HGB Conc 31.4 g/dl (32-36); Mean Corpuscular Hemoglobin 31.6 pg (26-34); Mean Corpuscular Volume 100.7 fl (80-100); Monocytes Absolute Auto 0.3 K/mm3 (0.1-0.6); Monocytes Percent Auto 7.1 % (2.6-8.5); Neutrophils Absolute Auto 3.7 K/mm3 (1.3-6.7); Neutrophils Percent Auto 81.2 % (45.5-73.1); Platelet Count Result 137 k/mm3 (150-375); Red Blood Count 2.88 M/mm3 (4.6-6.20); Red Cell Distribution Width 13.5 % (11.5-14.5); White Blood Count 4.5 K/mm3 (4.5-10.0)
[2021-07-28 06:32] LABS: Alanine Aminotransferase 18 U/L (6-50); Albumin Level 2.7 g/dL (3.5-5.1); Alkaline Phosphatase 58 U/L (38-126); Anion Gap 3 mmol/L (8-16); Aspartate Amino Transferase 30 U/L (17-59); Bilirubin,Total 0.6 mg/dL (0.2-1.3); Blood Urea Nitrogen 21 mg/dL (9-20); Calcium 9.6 mg/dL (8.4-10.2); Carbon Dioxide 25 mmol/L (22-30); Chloride 107 mmol/L (98-107); Estimated CRCL calculation 43 ml/min; Estimated Glomerular Filt Rate 42; Glucose 141 mg/dL (65-110); Magnesium 1.9 mg/dL (1.6-2.3); Potassium 3.6 mmol/L (3.4-5.0); Sodium 135 mmol/L (137-145)
[2021-07-28 07:19] LABS: Glucose Point of Care 139 mg/dl (65-105)
[2021-07-28] MEDS: FLUTICASONE/SALMETEROL 115-21 MCG INHALER 1 PUFF 2 PUFF INHALATION ×2 (07:54→19:56)
[2021-07-28] MEDS: amLODIPine BESYLATE 5 MG TABLET PO (08:43)
[2021-07-28] MEDS: DOCUSATE SODIUM 100 MG CAPSULE PO (08:43)
[2021-07-28] MEDS: carvediloL 12.5 MG TABLET PO ×2 (08:43→19:55)
[2021-07-28] MEDS: MORPHINE SULFATE (*CRX) 4 MG/ML INJ IV PUSH ×2 (11:24→17:07)
[2021-07-28] MEDS: ONDANSETRON INJ 4 MG/2 ML VIAL IV PUSH (11:25)
--- NOTE | 2021-07-28 11:29 | PM.IMPN ---
Progress Note: A&P Assessment and Plan (1) Generalized muscle weakness: Code(s): M62.81 - Muscle weakness (generalized) Status: Acute (2) Acute alteration in mental status: Code(s): R41.82 - Altered mental status, unspecified Status: Acute (3) Metastatic cancer: Code(s): C79.9 - Secondary malignant neoplasm of unspecified site Status: Acute (4) Obesity: Code(s): E66.9 - Obesity, unspecified Status: Acute (5) BLAKE (dyspnea on exertion): Code(s): R06.00 - Dyspnea, unspecified Status: Acute (6) Diabetes 1.5, managed as type 2: Code(s): E13.9 - Other specified diabetes mellitus without complications Status: Acute (7) Chronic kidney disease: Code(s): N18.9 - Chronic kidney disease, unspecified Status: Acute (8) Asthma: Code(s): J45.909 - Unspecified asthma, uncomplicated Status: Acute (9) HTN (hypertension): Code(s): I10 - Essential (primary) hypertension Status: Acute Plan Generalized weakness PT OT to see and evaluate and treat he has been pancultured. WBC count is normal. Cultures no growth so far Altered mental status CTA is negative for any acute findings pancultured WBC count is normal. Metastatic renal cell carcinoma with Mets to spine lungs and spine Recent removal of thoracic spinal lesion Not on active chemotherapy Hypercalcemia recent treated with Zometa at his oncologist's office. IV fluids started. Hypercalcemia has resolved today Chronic kidney disease stage 3 baseline creatinine in high 1s to 2s. At baseline level IV hydration continue to monitor UTI likely also contributing factor to current presentation along with hypercalcemia Rocephin given in the ER will continue same Type 2 diabetes mellitus on insulin resume home medication Hypertension not optimal currently Six status post radical nephrectomy Hyperlipidemia Chronic back pain Asthma Mild anemia Mild troponin elevation repeat and monitor. Serial troponin with flat trajectory Hypothyroidism DVT prophylaxis: Heparin subQ Code status discussed with the son. Wants him to be full code Subjective Date/time seen: 07/28/21 11:29 Interval history: HPI:75-year-old male who presents to the ED today weakness and altered mental status.? Patient has an underlying history of renal cell carcinoma widespread metastasis.? Any chemotherapy.? He had metastasis to his spine and was recently removed in May 2021.? He has been declining ever since the surgery.? Is also been placed on multiple different pain medication his back pain.? To his after he recovers from this back surgery.? Went to see his oncologist yesterday was noted to have high calcium level.? Given 2 L of IV fluid and also a medication to lower his calcium likely Zometa.? He got home from 0.9 yesterday and has been feeling extremely weak and not able to ambulate.? He is also confused and hence family brought him to the ED for evaluation.? With his widespread cancer little been talks about hospice enrollment which is still in process.? Family is open to talking with palliative care/hospice.? Son is at bedside.? is power title attorney.? Patient verbalizes and answer some questions.? Most of history is taken from the medical records in son was at bedside. PMH also significant for insulin dependent diabetes, hyperlipidemia,? and hypertension. He has had a radical nephrectomy due to the cancer. 07/28/2021 feeling a little better. More awake. Less confused today. Denies any other complaints. Review of Systems Review of Systems: All systems reviewed & are unremarkable except as noted in HPI and below Exam Narrative: GENERAL: The patient is well developed, lethargic but more awake, not in acute distress HEENT: Nonicteric sclerae, PERRLA, EOMI. Oropharynx clear. Dry mucous membranes. Conjunctivae appear well perfused. CHEST: Chest wall is nontender. HEART: Regular rate and rhythm without murmur, r
[2021-07-28 11:39] LABS: Glucose Point of Care 170 mg/dl (65-105)
[2021-07-28 16:36] LABS: Glucose Point of Care 156 mg/dl (65-105)
[2021-07-28] MEDS: ATORVASTATIN 10 MG TABLET PO (19:55)
[2021-07-28 21:30] LABS: Glucose Point of Care 133 mg/dl (65-105)
[2021-07-29] MEDS: MORPHINE SULFATE (*CRX) 4 MG/ML INJ IV PUSH (03:00)
[2021-07-29] MEDS: SODIUM CHLORIDE 0.9% IV 1,000 ML 75 ML IV CONT (03:00)
[2021-07-29 04:56] VITALS: BP 130/50; PULSE 75; RESP 16; TEMP 36.7; O2SAT 96
[2021-07-29] MEDS: LEVOTHYROXINE SODIUM 88 MCG TABLET PO (05:30)
[2021-07-29] MEDS: CENTRAL LINE FLUSH 10 ML IV PUSH ×2 (05:30→20:16)
[2021-07-29 05:46] LABS: Basophils Percent Auto 0.2 % (0.2-1.2); Eosinophils Percent Auto 0.8 % (0-4.4); Hematocrit 29.3 % (42.0-52.0); Hemoglobin 9.3 g/dL (14.0-18.0); Immature Granulocyte Absolute 0.03 K/mm3 (0.00-0.031); Immature Granulocyte Percent A 0.6 % (0-0.5); Lymphocytes Percent Auto 9.5 % (18.3-44.2); Mean Corpuscular HGB Conc 31.7 g/dl (32-36); Mean Corpuscular Hemoglobin 31.6 pg (26-34); Mean Corpuscular Volume 99.7 fl (80-100); Mean Platelet Volume 9.6 fl (7.4-10.4); Monocytes Absolute Auto 0.5 K/mm3 (0.1-0.6); Monocytes Percent Auto 8.9 % (2.6-8.5); Neutrophils Absolute Auto 4.2 K/mm3 (1.3-6.7); Platelet Count Result 127 k/mm3 (150-375); Red Blood Count 2.94 M/mm3 (4.6-6.20); Red Cell Distribution Width 13.8 % (11.5-14.5); White Blood Count 5.3 K/mm3 (4.5-10.0)
[2021-07-29 05:58] LABS: Alanine Aminotransferase 31 U/L (6-50); Albumin Level 2.7 g/dL (3.5-5.1); Alkaline Phosphatase 62 U/L (38-126); Anion Gap 2 mmol/L (8-16); Aspartate Amino Transferase 44 U/L (17-59); Bilirubin,Total 0.6 mg/dL (0.2-1.3); Blood Urea Nitrogen 22 mg/dL (9-20); Calcium 8.8 mg/dL (8.4-10.2); Carbon Dioxide 23 mmol/L (22-30); Chloride 106 mmol/L (98-107); Estimated CRCL calculation 46 ml/min; Estimated Glomerular Filt Rate 45; Glucose 131 mg/dL (65-110); Potassium 3.8 mmol/L (3.4-5.0); Sodium 131 mmol/L (137-145)
[2021-07-29 07:32] LABS: Glucose Point of Care 140 mg/dl (65-105)
[2021-07-29] MEDS: amLODIPine BESYLATE 5 MG TABLET PO (09:49)
[2021-07-29] MEDS: PROCHLORPERAZINE MALEATE 5 MG TABLET 10 MG PO (09:49)
[2021-07-29] MEDS: carvediloL 12.5 MG TABLET PO ×2 (09:49→20:16)
[2021-07-29] MEDS: DOCUSATE SODIUM 100 MG CAPSULE PO ×2 (09:49→20:16)
[2021-07-29 11:44] LABS: Glucose Point of Care 141 mg/dl (65-105)
[2021-07-29 14:00] VITALS: BP 120/75; PULSE 64; RESP 18; TEMP 36.8; O2SAT 95
--- NOTE | 2021-07-29 14:45 | PM.IMPN ---
Progress Note: A&P Assessment and Plan (1) Generalized muscle weakness: Code(s): M62.81 - Muscle weakness (generalized) Status: Acute (2) Acute alteration in mental status: Code(s): R41.82 - Altered mental status, unspecified Status: Acute (3) Metastatic cancer: Code(s): C79.9 - Secondary malignant neoplasm of unspecified site Status: Acute (4) Obesity: Code(s): E66.9 - Obesity, unspecified Status: Acute (5) BLAKE (dyspnea on exertion): Code(s): R06.00 - Dyspnea, unspecified Status: Acute (6) Diabetes 1.5, managed as type 2: Code(s): E13.9 - Other specified diabetes mellitus without complications Status: Acute (7) Chronic kidney disease: Code(s): N18.9 - Chronic kidney disease, unspecified Status: Acute (8) Asthma: Code(s): J45.909 - Unspecified asthma, uncomplicated Status: Acute (9) HTN (hypertension): Code(s): I10 - Essential (primary) hypertension Status: Acute Plan Generalized weakness PT OT to see and evaluate and treat he has been pancultured. WBC count is normal. Cultures no growth so far Altered mental status CTA is negative for any acute findings pancultured WBC count is normal. Metastatic renal cell carcinoma with Mets to spine lungs and spine Recent removal of thoracic spinal lesion Not on active chemotherapy Hypercalcemia recent treated with Zometa at his oncologist's office. IV fluids started. Hypercalcemia has resolved . Will stop IV fluids Chronic kidney disease stage 3 baseline creatinine in high 1s to 2s. At baseline level IV hydration continue to monitor UTI likely also contributing factor to current presentation along with hypercalcemia Rocephin given in the ER will continue same Type 2 diabetes mellitus on insulin resume home medication Hypertension improved. status post radical nephrectomy Hyperlipidemia Chronic back pain Asthma Mild anemia Mild troponin elevation repeat and monitor. Serial troponin with flat trajectory Hypothyroidism DVT prophylaxis: Heparin subQ Code status discussed with the son. Wants him to be full code. Family meeting with hospice today which is reasonable due to advance metastatic cancer. Poor performance status. They state they are not ready for that yet. Will continue with ongoing discussion regarding further care. Explain hospice and and its implications with the family at bedside 07/29/2021 Subjective Date/time seen: 07/29/21 14:45 Interval history: HPI:75-year-old male who presents to the ED today weakness and altered mental status.? Patient has an underlying history of renal cell carcinoma widespread metastasis.? Any chemotherapy.? He had metastasis to his spine and was recently removed in May 2021.? He has been declining ever since the surgery.? Is also been placed on multiple different pain medication his back pain.? To his after he recovers from this back surgery.? Went to see his oncologist yesterday was noted to have high calcium level.? Given 2 L of IV fluid and also a medication to lower his calcium likely Zometa.? He got home from 0.9 yesterday and has been feeling extremely weak and not able to ambulate.? He is also confused and hence family brought him to the ED for evaluation.? With his widespread cancer little been talks about hospice enrollment which is still in process.? Family is open to talking with palliative care/hospice.? Son is at bedside.? is power attorney general.? Patient verbalizes and answer some questions.? Most of history is taken from the medical records in son was at bedside. PMH also significant for insulin dependent diabetes, hyperlipidemia,? and hypertension. He has had a radical nephrectomy due to the cancer. 07/28/2021 feeling a little better. More awake. Less confused today. Denies any other complaints. 07/29/2021 no overnight events. More alert and conversant. He complains of being tired. Walk to the bathroom an
--- NOTE | 2021-07-29 15:31 | PCPTNOTE ---
Patient not seen for Physical Therapy this date per RN.
[2021-07-29 16:30] LABS: Glucose Point of Care 152 mg/dl (65-105)
[2021-07-29 19:23] VITALS: BP 148/50; PULSE 80; RESP 16; TEMP 36.3; O2SAT 94
[2021-07-29 20:16] VITALS: PULSE 80
[2021-07-29] MEDS: ATORVASTATIN 10 MG TABLET PO (20:16)
[2021-07-29 20:23] VITALS: O2SAT 92
[2021-07-29] MEDS: FLUTICASONE/SALMETEROL 115-21 MCG INHALER 1 PUFF 2 PUFF INHALATION (20:23)
[2021-07-29 20:45] LABS: Glucose Point of Care 184 mg/dl (65-105)
[2021-07-30 04:08] VITALS: BP 131/45; PULSE 78; RESP 18; TEMP 36.1; O2SAT 92
[2021-07-30] MEDS: LEVOTHYROXINE SODIUM 88 MCG TABLET PO (05:39)
[2021-07-30] MEDS: CENTRAL LINE FLUSH 10 ML IV PUSH ×2 (05:39→15:24)
[2021-07-30 05:54] LABS: Basophils Percent Auto 0.3 % (0.2-1.2); Eosinophils Absolute Auto 0.1 K/mm3 (0-0.3); Hematocrit 27.9 % (42.0-52.0); Hemoglobin 8.8 g/dL (14.0-18.0); Immature Granulocyte Absolute 0.03 K/mm3 (0.00-0.031); Lymphocytes Absolute Auto 0.51 K/mm3 (0.9-3.2); Lymphocytes Percent Auto 17.1 % (18.3-44.2); Mean Corpuscular HGB Conc 31.5 g/dl (32-36); Mean Corpuscular Hemoglobin 31.5 pg (26-34); Mean Platelet Volume 9.7 fl (7.4-10.4); Monocytes Absolute Auto 0.4 K/mm3 (0.1-0.6); Neutrophils Percent Auto 66.6 % (45.5-73.1); Platelet Count Result 121 k/mm3 (150-375); Red Blood Count 2.79 M/mm3 (4.6-6.20); Red Cell Distribution Width 13.7 % (11.5-14.5)
[2021-07-30 06:06] LABS: Alanine Aminotransferase 41 U/L (6-50); Albumin Level 2.5 g/dL (3.5-5.1); Alkaline Phosphatase 65 U/L (38-126); Anion Gap 4 mmol/L (8-16); Aspartate Amino Transferase 47 U/L (17-59); Bilirubin,Total 0.6 mg/dL (0.2-1.3); Blood Urea Nitrogen 27 mg/dL (9-20); Calcium 8.3 mg/dL (8.4-10.2); Carbon Dioxide 22 mmol/L (22-30); Chloride 106 mmol/L (98-107); Estimated CRCL calculation 41 ml/min; Estimated Glomerular Filt Rate 39; Glucose 157 mg/dL (65-110); Magnesium 2.1 mg/dL (1.6-2.3); Potassium 3.6 mmol/L (3.4-5.0); Sodium 132 mmol/L (137-145)
[2021-07-30 07:08] LABS: Glucose Point of Care 156 mg/dl (65-105)
[2021-07-30 08:01] VITALS: PULSE 77; RESP 16; O2SAT 94
[2021-07-30] MEDS: FLUTICASONE/SALMETEROL 115-21 MCG INHALER 1 PUFF 2 PUFF INHALATION (08:01)
[2021-07-30] MEDS: DOCUSATE SODIUM 100 MG CAPSULE PO (08:19)
[2021-07-30] MEDS: amLODIPine BESYLATE 5 MG TABLET PO (08:19)
[2021-07-30] MEDS: carvediloL 12.5 MG TABLET PO (08:19)
[2021-07-30] MEDS: MORPHINE SULFATE (*CRX) 4 MG/ML INJ IV PUSH ×3 (08:22→15:23)
[2021-07-30 11:39] LABS: Glucose Point of Care 182 mg/dl (65-105)
--- NOTE | 2021-07-30 11:46 | PCPTNOTE ---
The patient treatment was not able to be completed on 07/30/2021. Per RN not to see patient for therapy, patient going hospice.
--- NOTE | 2021-07-30 12:19 | PM.DS ---
DS: Admitting Diagnosis Discharge Date 07/30/2021 Admitting Diagnosis Altered mental status DS: Discharge Diagnosis Discharge Diagnosis (1) Generalized muscle weakness: Code(s): M62.81 - Muscle weakness (generalized) Status: Acute (2) Acute alteration in mental status: Code(s): R41.82 - Altered mental status, unspecified Status: Acute (3) Metastatic cancer: Code(s): C79.9 - Secondary malignant neoplasm of unspecified site Status: Acute (4) Obesity: Code(s): E66.9 - Obesity, unspecified Status: Acute (5) BLAKE (dyspnea on exertion): Code(s): R06.00 - Dyspnea, unspecified Status: Acute (6) Diabetes 1.5, managed as type 2: Code(s): E13.9 - Other specified diabetes mellitus without complications Status: Acute (7) Chronic kidney disease: Code(s): N18.9 - Chronic kidney disease, unspecified Status: Acute (8) Asthma: Code(s): J45.909 - Unspecified asthma, uncomplicated Status: Acute (9) HTN (hypertension): Code(s): I10 - Essential (primary) hypertension Status: Acute Plan # Generalized weakness PT OT to see and evaluate and treat he has been pancultured. WBC count is normal. Blood Cultures no growth so far. Urine culture grew coag-negative staph not saprophyticus # Altered mental status CTA is negative for any acute findings pancultured WBC count is normal. # Metastatic renal cell carcinoma with Mets to spine lungs and spine # Recent removal of thoracic spinal lesion # Not on active chemotherapy # Hypercalcemia recent treated with Zometa at his oncologist's office. IV fluids started. Hypercalcemia has resolved . Stopped IV fluids # Chronic kidney disease stage 3 baseline creatinine in high 1s to 2s. At baseline level IV hydration continue to monitor # UTI likely also contributing factor to current presentation along with hypercalcemia Rocephin given in the ER will continue same # Type 2 diabetes mellitus on insulin resume home medication # Hypertension improved. # status post radical nephrectomy # Hyperlipidemia # Chronic back pain # Asthma # Mild anemia # Mild troponin elevation repeat and monitor. Serial troponin with flat trajectory # Hypothyroidism # DVT prophylaxis: Heparin subQ # Code status discussed with the son. Wants him to be full code. Family meeting with hospice 07/29/2021 and patient and family opted for hospice care. Arrangements being made for discharge to home hospice which is done with the help of care coordination. DS: Summary Hospital Course Hospital Course: See above Time Spent with Patient Time attestation: Total time spent providing and/or coordinating discharge services: 45 minutes Exam Narrative: GENERAL: The patient is well developed, more awake, not in acute distress HEENT: Nonicteric sclerae, PERRLA, EOMI. Oropharynx clear. Dry mucous membranes. Conjunctivae appear well perfused. CHEST: Chest wall is nontender. HEART: Regular rate and rhythm without murmur, rubs, or gallops LUNGS: Diminished breath sounds bilaterally. no respiratory distress ABDOMEN: Soft, positive bowel sounds, non-tender, no organomegaly. SKIN: No rash, no excessive bruising, petechiae, or purpura. NEUROLOGIC: Cranial nerves II-XII intact, tired looking, alert and awake and conversant, generalized weakness both upper and lower extremities moving all extremities equally EXTREMITIES: no edema, cyanosis or clubbing DS: Data Data Completed and Pending Labs on day of discharge: Labs from last 24 hours 07/30/21 07/30/21 07/30/21 11:36 07:06 05:40 WBC RBC Hgb Hct MCV MCH MCHC RDW Plt Count MPV Immature Gran % (Auto) Neut % (Auto) Lymph % (Auto) Craig % (Auto) Eos % (Auto) Baso % (Auto) Lymph # (Auto) Craig # (Auto) Eos # (Auto) Baso # (Auto) Abs Immat Gran (auto) Absolute Neuts (auto) Absolute Nucleated RBC Nucl
--- NOTE | 2021-07-30 13:51 | PCNFU ---
Nutrition Follow-Up Complete: Inadequate Oral Intake as related to altered mental status/weakness as evidenced by reported poor po intake. Goal: Adequate Intake of at least 75% of meals/supplements - Pt is not meeting current goal, will continue current goal. Pt current nutrition is [facility]. Last recorded weight is 117 kg. Bowel Motility: +BM (07/30/2021) Labs Reviewed: Hgb 8.8, Hct 27.9, Alb 2.5, Na 132, GFR 39, BUN 27, Cr 1.7, Glu 157 Meds Noted: Zofran, Compazine Skin: WNL Additional Notes: Pt is eating 30% of [facility] meals. Pt was encouraged to increase oral intake of both meals and supplements (Glucerna: 220kcal, 10gm pro). Pt mentioned he likes grapes, nuts, chips, and/or bananas with his meals to snack on, spoke with diet office about dietary likes. Pt has hospice referral. RD will monitor every 3 days.
--- NOTE | 2021-07-30 14:14 | PCNSR ---
On 07/30/21, the student, Kimberlee Ibanez, provided care and completed [facility] documentation on this patient. I have reviewed the student's documentation and agree with the findings.
[2021-07-30] MEDS: HEPARIN SODIUM LOCK FLUSH 500 UNITS/5 ML VIAL IV PUSH (15:23)
== END 2021-07-30 16:18 | disposition hospice, home (50) | DRG 556 ==
LOC: ANHED 11:20 → ANH3MED 11:39
PROVIDERS: Admitting Provider Internal Medicine; Emergency Provider Nurse Practitioner Family; PCP Family Medicine; Visit Provider Internal Medicine
DX: M62.81 Muscle weakness (generalized) (principal); C64.9 Malignant neoplasm of unspecified kidney, except renal pelvis; C78.00 Secondary malignant neoplasm of unspecified lung; C79.51 Secondary malignant neoplasm of bone; R41.82 Altered mental status, unspecified; J45.909 Unspecified asthma, uncomplicated; I12.9 Hypertensive chronic kidney disease with stage 1 through stage 4 chronic kidney disease, or unspecified chronic kidney disease; E78.5 Hyperlipidemia, unspecified; E03.9 Hypothyroidism, unspecified; F41.1 Generalized anxiety disorder; E11.22 Type 2 diabetes mellitus with diabetic chronic kidney disease; E66.9 Obesity, unspecified; N18.30 Chronic kidney disease, stage 3 unspecified; R06.00 Dyspnea, unspecified; E83.52 Hypercalcemia; D64.9 Anemia, unspecified; Z79.899 Other long term (current) drug therapy; Z79.4 Long term (current) use of insulin; Z90.5 Acquired absence of kidney
CPT/HCPCS: 36415; 70450; 71250; 74176; 80053; 81001; 82948; 83605; 83735; 84484; 85025; 85610; 85730; 86140; 87040; 87086; 87147; 87181; 87186; 93005; 94640; 96361; 96365; 96375; 96376; 97161; 97165; 99285; A9270; G0378; J0696; J1642; J2270; J2405; J7030